=== PATIENT | male | born 1985 ===

== ENCOUNTER 2016-05-19 13:28 | Emergency (ER) | payer SELFPAY ==
[2016-05-19 13:48] VITALS: BP 151/81
--- NOTE | 2016-05-19 14:11 | UC ---
Zhao Reynaga Alok, scribed for Cynthia Jenkins MD on 05/19/16 at 1411 . Skin Complaint HPI - HPI Summary HPI Summary: 31 y/o males presents to the with left ear discomfort he noticed 5 days ago. Since then, it has gotten larger and more painful. Pt states he has had this before. Was told he has a cyst that gets infected. Last episode in October in [place] where he lives. Pt states took Clindamycin and anti-inflammatory - states became large and "burst" Discomfort is aggravated to palpation. No analgesia taken. denies any fever, chills, N/V, jaw or mouth pain. No ear canal pain. Pt does not take any medications regularly besides an OTC sinus medication last night, and has no PSHx. Pt states he is allergic to Penicillin and EtOH use occasionally. - History of Current Complaint Chief Complaint: UCSkin Time Seen by Provider: 05/19/16 13:51 Stated Complaint: EAR PAIN Hx Obtained From: Patient Onset/Duration: Gradual Onset, Lasting Days, Still Present Onset Severity: Moderate Current Severity: Moderate Location: Ear (Left) Character: Swelling, Redness, Painful Aggravating: Touch Alleviating: Nothing Associated Signs & Symptoms: Negative: Nausea, Vomiting, Fever, Chills - Allergy/Home Medications Allergies/Adverse Reactions: Allergies Allergy/AdvReac Type Severity Reaction Status Date / Time Penicillins [PCN] Allergy Unknown Verified 05/19/16 13:48 Reaction Details Review of Systems Constitutional: Negative Skin: Other - Abscess left ear Eyes: Negative ENT: Negative Respiratory: Negative Cardiovascular: Negative Gastrointestinal: Negative Genitourinary: Negative Motor: Negative Neurovascular: Negative Musculoskeletal: Negative Neurological: Negative Psychological: Negative All Other Systems Reviewed And Are Negative: Yes PMH/Surg Hx/FS Hx/Imm Hx Previously Healthy: Yes Endocrine History Of: Denies: Thyroid Disease Cardiovascular History Of: Denies: Cardiac Disorders, Hypertension Respiratory History Of: Denies: Asthma - Surgical History Surgical History: None - Family History Known Family History: Positive: Other - No- Skin abscess - Social History Lives: With Family Alcohol Use: Occasionally Substance Use Type: None Smoking Status (MU): Never Smoked Tobacco Physical Exam Triage Information Reviewed: Yes Appearance: Well-Appearing, No Pain Distress, Well-Nourished Vital Signs: Initial Vital Signs Temp 98.2 F 05/19/16 13:43 Pulse 58 05/19/16 13:43 Resp 16 05/19/16 13:43 BP 151/81 05/19/16 13:43 Pulse Ox 100 05/19/16 13:43 Vital Signs Reviewed: Yes Eye Exam: Normal Eyes: Positive: Conjunctiva Clear ENT Exam: Normal ENT: Positive: Pharynx normal, TMs normal, Other: - left inferior aspect of lobe pt with small cyst with mild erythema and TTP on surface. No fluctance, mild firm. No erythema to face, mastoid. No mastoid pain. No jaw pain. no TMJ pain Dental Exam: Normal, Other - No TMJ pain Neck: Positive: Supple, Nontender, No Lymphadenopathy Respiratory Exam: Normal Cardiovascular Exam: Normal Cardiovascular: Positive: RRR, No Murmur Abdominal Exam: Normal Abdomen Description: Positive: Nontender, Soft Bowel Sounds: Positive: Present Musculoskeletal Exam: Normal Neurological Exam: Normal Psychological Exam: Normal Skin: Positive: Other - left ear lobe Course/Dx - Course Course Of Treatment: PT with aparent cyst in left ear lobe with recurrent local infection - pt with mild inflammation and discomfort. No drainage. No fluctuance. Will give Rx Clinda - pt has previously used. warm soaks. MOtrin prn (precaution of Motrin with whatever is in Sinus meds - pt states understanding). Precautions discussed - return prn. Pt comfortable and in agreement with plan - Diagnoses Provider Diagnoses: infected sebaceous cyst left earlobe Discharge - Discharge Plan Condition: Stable Disposition: HOME Prescriptions: Clindamycin CAP* [Cleocin 150 MG CAP*] 300 mg PO TID #21 cap Patient Education Materials: Cyst (ED) Additional Instructions: - Take antibiotics 3 times a day as prescribed. This medication may cause diarrhea - apply warm water soaks to your ear, 2 times a day for 5 days - Okay to take an anti-inflammatory such as ibuprofen (Advil, Motrin) as needed for pain. Take with food. Do NOT take this medication if the sinus medication also contains this ingredient. One or the other is okay. - If you developed increased reddness or fevers, increased pain, pain in your jaw, fevers or chills - you should return to the emergency department or urgent care clinic -Try not to touch, rub or squeeze the area of infection Return with any questions or concerns The documentation as recorded by the scribZhao ontiveros Alok accurately reflects the service I personally performed and the decisions made by , Cynthia Jenkins MD.
== END 2016-05-19 14:19 | disposition home or self-care (01) ==
LOC: UCEAST 13:28
DX: L72.3 Sebaceous cyst (principal); Z88.0 Allergy status to penicillin
CPT/HCPCS: 99202; G0463